=== PATIENT | male | born 1995 | race Caucasian/White ===

== ENCOUNTER 2016-09-10 22:44 | Emergency (ER) | payer MEDICAID, OTHER ==
[~2016-09-10] VITALS: Ht 167.6 cm; Wt 76.0 kg
[~2016-09-10 22:44] MED LIST: IBUP-1542 PO
[2016-09-10 22:59] VITALS: Ht 167.6 cm; Wt 76.0 kg
[2016-09-11] MEDS ORDERED: TYL500 PO (01:12)
[2016-09-11] MEDS ORDERED: BEN25 PO (01:12)
[2016-09-11] MEDS ORDERED: HC1C30 TOP (01:12)
--- NOTE | 2016-09-11 01:18 | ERD ---
ER Documentation Chief Complaint Date/Time DATE: 09/11/16 TIME: 01:15 Chief Complaint total body rash, SPENCER HPI This is a 21-year-old male presents here with a rash all over his body over the last 4 days. Rash is very itchy. He denies any fevers or chills. He does admit to some diarrhea today and a headache today. He denies any sick contacts at home. He has not traveled anywhere. His appetite is normal. He has not come in contact with any new substances he does not have any facial swelling. He denies any shortness of breath or difficulty in breathing. ROS 12 point review of systems was done, all negative except per HPI. Medications Home Meds Active Scripts Hydrocortisone* Topical (Hydrocortisone* Topical) 1%-28.35 Gm Cream..g., 1 APPLIC TOP Q6 Y for ITCHING, #1 TUB Prov:CHAPIN KEE 09/11/16 Acetaminophen* (Tylenol*) 500 Mg Tab, 500 MG PO Q4H Y for MILD PAIN LEVEL 1-3 for 3 Days, TAB Prov:CHAPIN KEE 09/11/16 Diphenhydramine Hcl* (Benadryl*) 25 Mg Cap, 25 MG PO Q6, #30 CAP Prov:CHILANGOJONOCHAPIN C 09/11/16 Ibuprofen* (Motrin*) 600 Mg Tab, 600 MG PO Q6H Y for PAIN AND OR ELEVATED TEMP, #30 Prov:MARCIO IGLESIAS NP 12/04/14 Allergies Allergies: Coded Allergies: No Known Allergy (Unverified , 09/10/16) PMhx/Soc Medical and Surgical Hx: pt denies Medical Hx, pt denies Surgical Hx Hx Alcohol Use: No Hx Substance Use: No Hx Tobacco Use: No Smoking Status: Never smoker Physical Exam Vitals Vital Signs Date Time Temp Pulse Resp B/P Pulse Ox O2 Delivery O2 Flow Rate FiO2 09/10/16 22:59 99.0 79 18 159/96 99 Physical Exam GENERAL: The patient is well developed and appropriate for usual state of health , in no apparent distress. HEENT: Atraumatic. No lip, tongue, eyes swelling. CHEST: Clear to auscultation bilaterally. There are no rales, wheezes or rhonchi. HEART: Regular rate and rhythm. No murmurs, clicks, rubs or gallops. NEURO: Alert and oriented. SKIN: Vesicular lesions all over body some lesions on palms of hands and soles of feet. Results 24 hrs Current Medications Medications (Trade) Dose Ordered Sig/Kristan Route PRN Reason Start Time Stop Time Status Last Admin Dose Admin Ibuprofen (Motrin) 600 mg ONCE ONCE PO 09/11/16 01:30 09/11/16 01:31 Procedures/MDM Differential Diagnosis: dermatitis, allergic urticaria, viral exanthem, insect bite, fungal infectio ,viral exanthem, hand foot mouth disease, , impetigo, cellulitis, abscess, andreina saba syndrome, meningocemia, necrotizing fasciitis. This is a 21-year-old male presents to the ER with a rash all over his body. Patient does have vesicles on the palms of his hands and on his feet. This may be kafv-pjvu-eea-mouth disease, even though this is unlikely giving his age group. This may be viral in etiology. Doubt chickenpox as patient had chickenpox as a child and these lesions are not in different stages of development. Suspicion for infectious etiology such as meningocemia is low. Patient is afebrile and well-appearing. He will be sent home with Benadryl, hydrocortisone and Tylenol for his headaches. Suspicion for acute intracranial pathology is low. Patient is neurologically intact with no focal neurological deficits. In regards to patient's diabetes is likely viral in etiology. Patient does not appear dehydrated. Patient is to follow-up with his primary care doctor within 1-2 days return to ER sooner if symptoms worsen. My medical decision making shared with the patient understands and agrees with plan. Departure Diagnosis: Primary Impression: Rash Condition: Stable Patient Instructions: Self-Care for Skin Rashes Referrals: ZAKI HOLLIS (PCP) Additional Instructions: Call your primary care doctor TOMORROW for an appointment during the next 1-2 days.See the doctor sooner or return here if your condition worsens before your appointment time. CHAPIN KEE Sep 11, 2016 01:18
[2016-09-11] MEDS ORDERED: IBUPROFEN 600 MG TAB PO ONE (01:30)
== END 2016-09-11 01:56 | disposition home or self-care (01) ==
LOC: FTE 22:44
DX: R21 Rash and other nonspecific skin eruption (principal)
CPT/HCPCS: 99283

== ENCOUNTER 2018-01-07 15:58 | Inpatient (IN) | END 2018-01-10 12:31 | disposition home or self-care (01) | DRG 576 ==

== ENCOUNTER 2018-04-19 15:01 | Emergency (ER) | payer OTHER ==
[~2018-04-19] VITALS: Ht 165.1 cm; Wt 76.0 kg
[~2018-04-19 15:01] MED LIST changes: -IBUP-1542 PO; +TYL500 PO
[2018-04-19 15:14] VITALS: BP 148/74; PULSE 87; RESP 18; Ht 165.1 cm; Wt 76.0 kg
[2018-04-19] MEDS ORDERED: NAPR-985 PO (16:48)
--- NOTE | 2018-04-19 17:56 | ERD ---
ER Documentation Chief Complaint Chief Complaint TWISTED ANKLE YESTERDAY WITH A POP HEARD HPI This patient is a 22-year-old male with no significant medical history presenting to the emergency department complaining of right ankle pain after injury which occurred yesterday. The patient states he accidentally stepped in a pothole and twisted his ankle. His pain is constant, worse with walking, rated 8/10 in severity. Patient states he heard a "pop" when he injured the ankle. He denies any falls, loss of consciousness, head injury, or other symptoms or injuries at this time. ROS All systems reviewed and are negative except as per history of present illness. Medications Home Meds Active Scripts Naproxen* (Naprosyn*) 500 Mg Tablet, 500 MG PO BID PRN for PAIN AND/OR INFLAMMATION, #30 TAB Prov:CARLOS CASTRO PA-C 04/19/18 Acetaminophen* (Tylenol*) 500 Mg Tab, 500 MG PO Q4H PRN for MILD PAIN LEVEL 1-3 for 3 Days, TAB Prov:CHAPIN KEE 09/11/16 Allergies Allergies: Coded Allergies: No Known Allergy (Unverified , 01/07/18) PMhx/Soc History of Surgery: Yes (APPENDECTOMY) Anesthesia Reaction: No Hx Neurological Disorder: No Hx Respiratory Disorders: No Hx Cardiac Disorders: No Hx Psychiatric Problems: No Hx Miscellaneous Medical Probl: Yes (LT CHEST MASS) Hx Alcohol Use: No Hx Substance Use: No Hx Tobacco Use: No Smoking Status: Never smoker Physical Exam Vitals Vital Signs Date Temp Pulse Resp B/P (MAP) Pulse Ox O2 O2 Flow FiO2 Time Delivery Rate 04/19/18 98.9 87 18 148/74 99 15:14 (98) Physical Exam Const: No acute distress Head: Atraumatic Eyes: Normal Conjunctiva ENT: Normal External Ears, Nose and Mouth. Neck: Full range of motion. No meningismus. Resp: No respiratory distress. Skin: No petechiae or rashes Ext: Tenderness to palpation with mild associated soft tissue swelling of the lateral malleolus of the right lower extremity. Limited range of motion of the right ankle secondary to pain. 2+ pedal pulses of the right lower extremity. Neur: Awake and alert Psych: Normal Mood and Affect Results 24 hrs [place] [id number] Radiology Main Line: [phone] DIAGNOSTIC IMAGING REPORT Patient: RONY QUIROZ : 1995 Age: 22 Sex: M MR #: [id number] DOS: 04/19/18 0000 Ordering MD: CARLOS CASTRO PA-C Location: [facility] Room/Bed: PROCEDURE: XR Ankle. CLINICAL INDICATION: R ankle pain after injury TECHNIQUE: AP, oblique and lateral views of the right ankle were performed. COMPARISON: None. FINDINGS: There is normal mineralization and alignment. No fracture or osseous lesion is identified. The joints are normal. Mild lateral soft tissue swelling. IMPRESSION: Mild lateral soft tissue swelling without evidence of acute fracture or dislocation. Physician Omi Date Time Electronically viewed and signed by Physician Omi on 04/19/2018 16:36 RF/ CC: CARLOS CASTRO PA-C [id number] Procedures/MDM 22-year-old male presenting to the emergency department with signs and symptoms most consistent with right ankle sprain. X-ray showed no sign of fracture. The full report from the radiologist may be viewed above per the patient required Reg wrap and crutches in case of occult fracture. Splint Assessment: Neurovascularly intact post splint placement with good fit. Patient's extremity symptoms have stabilized while they have been evaluated in the department and are appropriate for outpatient follow up. No evidence of compartment syndrome, neurologic injury, vascular injury, open joint, open fracture, tendon laceration, or foreign body. No evidence of life-threatening pathology at time of discharge. Pt/family in agreement with discharge plan/diagnosis. Pt/family advised to return im mediately with any new or worsening symptoms. Follow-up with primary care physician within the next 1-2 days. Patient's blood pressure was elevated (>120/80) but appears stable without evidence of hypertension emergency or urgency. The patient is to follow-up and pursue outpatient monitoring and therapy with their primary care physician within 1 week and return immediately if they have any new, worsening, or concerning symptoms. Departure Diagnosis: Primary Impression: Right ankle sprain Encounter type: initial encounter Involved ligament of ankle: unspecified ligament Qualified Codes: S93.401A - Sprain of unspecified ligament of right ankle, initial encounter Condition: Fair Patient Instructions: Self-Care for Strains and Sprains Referrals: [facility] YOU HAVE RECEIVED A MEDICAL SCREENING EXAM AND THE RESULTS INDICATE THAT YOU DO NOT HAVE A CONDITION THAT REQUIRES URGENT TREATMENT IN THE EMERGENCY DEPARTMENT. FURTHER EVALUATION AND TREATMENT OF YOUR CONDITION CAN WAIT UNTIL YOU ARE SEEN IN YOUR DOCTORS OFFICE WITHIN THE NEXT 1-2 DAYS. IT IS YOUR RESPONSIBILITY TO MAKE AN APPOINTMENT FOR FOLOW-UP CARE. IF YOU HAVE A PRIMARY DOCTOR --you should call your primary doctor and schedule an appointment IF YOU DO NOT HAVE A PRIMARY DOCTOR YOU CAN CALL OUR PHYSICIAN REFERRAL HOTLINE AT IF YOU CAN NOT AFFORD TO SEE A PHYSICIAN YOU CAN CHOSE FROM THE FOLLOWING [facility] CLINICS [facility] [address] [facility]. [facility] [address] [facility] [facility] [address] [facility] [facility] [address] [facility]. [facility] [address] [facility]. [facility]. [address] Additional Instructions: Call your primary care doctor TOMORROW for an appointment during the next 1-2 days.See the doctor sooner or return here if your condition worsens before your appointment time. CARLOS CASTRO PA-C Apr 19, 2018 17:56
== END 2018-04-19 16:59 | disposition home or self-care (01) ==
LOC: FTE 15:01
DX: S93.401A Sprain of unspecified ligament of right ankle, initial encounter (principal); W18.42XA Slipping, tripping and stumbling without falling due to stepping into hole or opening, initial encounter; Y92.9 Unspecified place or not applicable
CPT/HCPCS: 73610; Z7502

== ENCOUNTER 2018-10-24 10:52 | Emergency (ER) | payer OTHER ==
[~2018-10-24] VITALS: Ht 167.6 cm; Wt 73.9 kg
[~2018-10-24 10:52] MED LIST changes: +NAPR-985 PO
[2018-10-24 10:54] VITALS: Ht 167.6 cm; Wt 73.9 kg
[2018-10-24] MEDS ORDERED: ONDANSETRON 4 MG INJ IV STA ×2 (11:26→12:44)
[2018-10-24] MEDS ORDERED: SOD CHLORIDE 0.9% 1,000 ML IV STA ×2 (11:26→12:44)
[2018-10-24] MEDS ORDERED: ONDA4TAB14 PO (14:08)
[2018-10-24] MEDS ORDERED: ACET500C5 PO (14:08)
--- NOTE | 2018-10-24 14:16 | ERD ---
ER Documentation Chief Complaint Chief Complaint ABD PAIN WITH VOMITING SINCE 0500 HPI 23-year-old male presenting with abdominal pain with vomiting. Patient states that his abdominal pain is in the epigastric region and he believes it is associated with the vomiting. He did not have abdominal pain prior to vomiting. Patient denies any medical problems and denies allergies to medication. Surgical history is cyst removal and appendectomy. Social history denies. Patient also had diarrhea and has not taken medications for his symptoms. ROS All systems reviewed and are negative except as per history of present illness. Medications Home Meds Active Scripts Acetaminophen* (Tylophen*) 500 Mg Capsule, 1 CAP PO Q6H PRN for PAIN AND OR ELEVATED TEMP, #20 CAP Prov:FELIPA BAUTISTA PA-C 10/24/18 Ondansetron (Ondansetron Odt) 4 Mg Tab.rapdis, 4 MG PO Q6H PRN for NAUSEA AND/OR VOMITING, #10 TAB Prov:FELIPA BAUTISTA PA-C 10/24/18 Naproxen* (Naprosyn*) 500 Mg Tablet, 500 MG PO BID PRN for PAIN AND/OR INFLAMMATION, #30 TAB Prov:CARLOS CASTRO PA-C 04/19/18 Acetaminophen* (Tylenol*) 500 Mg Tab, 500 MG PO Q4H PRN for MILD PAIN LEVEL 1-3 for 3 Days, TAB Prov:CHAPIN KEE 09/11/16 Allergies Allergies: Coded Allergies: No Known Allergy (Unverified , 01/07/18) PMhx/Soc History of Surgery: Yes (APPENDECTOMY, cyst removal on chest area) Anesthesia Reaction: No Hx Neurological Disorder: No Hx Respiratory Disorders: No Hx Cardiac Disorders: No Hx Psychiatric Problems: No Hx Miscellaneous Medical Probl: Yes (LT CHEST MASS) Hx Alcohol Use: No Hx Substance Use: No Hx Tobacco Use: No Smoking Status: Never smoker FmHx Family History: No diabetes, No coronary disease, No other Physical Exam Vitals Vital Signs Date Temp Pulse Resp B/P (MAP) Pulse Ox O2 O2 Flow FiO2 Time Delivery Rate 10/24/18 97.1 12:03 10/24/18 99.4 87 18 137/81 98 10:54 (99) Physical Exam GENERAL: The patient is well-appearing, well-nourished, in no acute distress HEENT: Atraumatic. Conjunctivae are pink. Pupils equal, round, and reactive to light. There is no scleral icterus. Tympanic membranes clear bilaterally. Oropharynx clear. CHEST: Clear to auscultation bilaterally. There are no rales, wheezes or rhonchi. HEART: Regular rate and rhythm. No murmurs, clicks, rubs or gallops. ABDOMEN:Soft, nontender and nondistended. Good bowel sounds. No rebound or guarding. No gross peritonitis. No gross organomegaly or masses. Result Diagram: 10/24/18 1138 10/24/18 1138 Results 24 hrs Laboratory Tests Test 10/24/18 11:38 White Blood Count 11.9 10^3/ul Red Blood Count 5.74 10^6/ul Hemoglobin 17.4 g/dl Hematocrit 48.5 % Mean Corpuscular Volume 84.5 fl Mean Corpuscular Hemoglobin 30.3 pg Mean Corpuscular Hemoglobin Concent 35.9 g/dl Red Cell Distribution Width 12.0 % Platelet Count 134 10^3/UL Mean Platelet Volume 12.1 fl Immature Granulocytes % 0.300 % Neutrophils % 89.5 % Lymphocytes % 4.7 % Monocytes % 4.8 % Eosinophils % 0.5 % Basophils % 0.2 % Nucleated Red Blood Cells % 0.0 /100WBC Immature Granulocytes # 0.040 10^3/ul Neutrophils # 10.7 10^3/ul Lymphocytes # 0.6 10^3/ul Monocytes # 0.6 10^3/ul Eosinophils # 0.1 10^3/ul Basophils # 0.0 10^3/ul Nucleated Red Blood Cells # 0.0 10^3/ul Urine Color JOSÉ Urine Clarity TURBID Urine pH 5.0 Urine Specific [place] 1.032 Urine Ketones NEGATIVE mg/dL Urine Nitrite NEGATIVE mg/dL Urine Bilirubin NEGATIVE mg/dL Urine Urobilinogen NEGATIVE mg/dL Urine Leukocyte Esterase NEGATIVE Brennen/ul Urine Microscopic RBC 2 /HPF Urine Microscopic WBC 1 /HPF Urine Amorphous Crystals MANY /HPF Urine Bacteria MANY /HPF Urine Mucus MANY /HPF Urine Hemoglobin 1+ mg/dL Urine Glucose NEGATIVE mg/dL Urine Total Protein 1+ mg/dl Sodium Level 143 mmol/L Potassium Level 4.1 mmol/L Chloride Level 103 mmol/L Carbon Dioxide Level 29 mmol/L Anion Gap 11 Blood Urea Nitrogen 20 mg/dl Creatinine 0.92 mg/dl Est Glomerular Filtrat Rate mL/min > 60 mL/min Glucose Level 126 mg/dl Calcium Level 9.9 mg/dl Total Bilirubin 1.4 mg/dl Direct Bilirubin 0.00 mg/dl Indirect Bilirubin 1.4 mg/dl Aspartate Amino Transf (AST/SGOT) 428 IU/L Alanine Aminotransferase (ALT/SGPT) 166 IU/L Alkaline Phosphatase 97 IU/L Total Protein 8.8 g/dl Albumin 5.2 g/dl Globulin 3.60 g/dl Albumin/Globulin Ratio 1.44 Lipase 44 U/L Current Medications Medications Dose Sig/Kristan Start Time Status Last (Trade) Ordered Route PRN Stop Time Admin Dose Reason Admin Sodium 1,000 ml @ Q1H STAT 10/24/18 DC 10/24/18 Chloride 1,000 mls/hr IV 11:26 11:37 10/24/18 12:25 Ondansetron 4 mg ONCE STAT 10/24/18 DC 10/24/18 HCl (Zofran IV 11:26 11:37 Inj) 10/24/18 11:28 Sodium 1,000 ml @ Q1H STAT 10/24/18 DC 10/24/18 Chloride 1,000 mls/hr IV 12:44 12:51 10/24/18 13:43 Ondansetron 4 mg ONCE STAT 10/24/18 DC 10/24/18 HCl (Zofran IV 12:44 12:51 Inj) 10/24/18 12:45 Procedures/MDM DIAGNOSTIC IMAGING REPORT Patient: RONY QUIROZ : 1995 Age: 23 Sex: M MR #: [id number] DOS: 10/24/18 1244 Ordering MD: MANDY BAUTISTA PA-C Location: E Room/Bed: PROCEDURE: US Abdomen (right upper quadrant). CLINICAL INDICATION: Epigastric pain. TECHNIQUE: Multiple real-time longitudinal and transverse images of the right upper quadrant of the abdomen were acquired utilizing a curved array transducer. Images were reviewed on a high-resolution PACS workstation. COMPARISON: None FINDINGS: The liver is normal in size and echotexture without focal mass or intrahepatic biliary dilatation. There is normal hepatopedal flow within the main portal vein. The gallbladder is well displayed without filling defects or wall thickening. The common bile duct measures 4.2 mm in maximal dimension. The visualized portions of the pancreas are unremarkable with obscuration of the tail of the pancreas. No free fluid is identified. The right kidney measures 10.9 cm in length. There is normal echogenicity within the right kidney. There is no perinephric fluid collection. No hydro nephrosis, mass, or calculus is seen. IMPRESSION: 1. Unremarkable right upper quadrant ultrasound. ER Course: 2L NS, 8mb IV Zofran given in ED. Patient's symptoms improved MDM: 23-year-old male presenting with abdominal pain and vomiting for 2 days. Patient's abdominal exam is non-concerning and I do not feel there is indication for further blood work. Patient does have slightly elevated liver enzymes and denies drinking however ultrasound is within normal limits and I have low suspicion for gallstone pancreatitis or Coledocolithiasis at this time. Patient is discharged with strict ER precautions and recommended follow-up with primary care patient is discharged with supportive medications. I have low suspicion for cardiac or pulmonary emergency. All questions answered at discharge Departure Diagnosis: Primary Impression: Vomiting Condition: Stable Patient Instructions: Vomiting (6Y-Adult) Additional Instructions: FOLLOW UP WITH YOUR PRIMARY CARE PHYSICIAN TOMORROW.Return to this facility if you are not improving as expected. FELIPA BAUTISTA PA-C Oct 24, 2018 14:16
[2018-10-24 14:21] VITALS: BP 122/70; PULSE 68; RESP 18
== END 2018-10-24 14:50 | disposition home or self-care (01) ==
LOC: FTE 10:52
DX: R11.10 Vomiting, unspecified (principal); R10.13 Epigastric pain
CPT/HCPCS: 76705; 80053; 81001; 83690; 85025; J2405; J7030; 36415; 96374; 96376